=== PATIENT | female | born 1950 | race Caucasian/White ===

== ENCOUNTER → 2016-08-08 | Outpatient (CLI) | payer MEDICARE, OTHER | LOC: RAD 09:37 | DX: R10.9 Unspecified abdominal pain (principal); R14.0 Abdominal distension (gaseous) | CPT/HCPCS: Q9967 ==

== ENCOUNTER 2017-06-06 06:11 | Emergency (ER) | payer MEDICARE ==
[~2017-06-06] VITALS: Ht 167.6 cm; Wt 81.5 kg
[2017-06-06 08:22] LABS: HEMATOCRIT 45.9 % (37.0-47.0); HEMOGLOBIN 15.1 g/dL (12.5-16.0); MEAN CELL VOLUME 87 fl (78-100); MEAN CORPUSCULAR HEMOGLOBIN 29 pg (27-31); MEAN CORPUSCULAR HGB CONC 33 g/dL (33-37); MEAN PLATELET VOLUME 9.7 fl (7.4-10.4); PLATELET COUNT 236 K/mm3 (130-400); RED CELL DISTRIBUTION WIDTH 13.2 % (11.5-14.5); WHITE BLOOD COUNT 6.7 K/mm3 (4.8-10.8)
[2017-06-06 08:26] LABS: ALBUMIN 4.2 g/dL (3.5-5.0); BUN/CREATININE RATIO 15.2 (6.0-26.0); CALCIUM 9.4 mg/dL (8.4-10.2); POTASSIUM 3.3 mmol/L (3.6-5.0); TOTAL BILIRUBIN 0.7 mg/dL (0.2-1.3); TOTAL PROTEIN 7.9 g/dL (6.3-8.2)
[2017-06-06 08:28] LABS: LYMPHOCYTE 51 % (20-51); MONOCYTE 13 % (3-10); NEUTROPHILS 36 % (42-75)
[2017-06-06 08:35] LABS: TROPONIN-I < 0.03 ng/mL (0.00-0.06)
[2017-06-06 09:03] LABS: URINE APPEARANCE CLEAR; URINE BILIRUBIN NEGATIVE (NEGATIVE); URINE BLOOD TRACE (NEGATIVE); URINE COLOR YELLOW; URINE GLUCOSE NEGATIVE (NEGATIVE); URINE KETONE NEGATIVE (NEGATIVE); URINE LEUKOCYTE ESTERASE NEGATIVE (NEGATIVE); URINE NITRATE NEGATIVE (NEGATIVE); URINE PROTEIN(semi-quant) NEGATIVE (NEGATIVE); URINE UROBILINOGEN NORMAL (NORMAL)
[2017-06-06] MEDS ORDERED: TESSALON PERLE100 M1 PO (09:23)
[2017-06-06] MEDS ORDERED: XOPENEX 3 ML3 M3 IH (09:23)
[2017-06-06] MEDS ORDERED: TRUNEB NEBULIZ1 EACH MC (09:23)
[2017-06-06 09:36] VITALS: BP 131/85
== END 2017-06-06 09:35 | disposition home or self-care (01) ==
LOC: ED 06:11
PROVIDERS: Physician Assistant
DX: J20.8 Acute bronchitis due to other specified organisms (principal); Z85.3 Personal history of malignant neoplasm of breast; Z90.11 Acquired absence of right breast and nipple; Z88.1 Allergy status to other antibiotic agents; Z88.0 Allergy status to penicillin; Z88.2 Allergy status to sulfonamides; I51.7 Cardiomegaly; E87.6 Hypokalemia

== ENCOUNTER 2017-06-12 16:31 | Emergency (ER) | payer MEDICARE ==
[~2017-06-12 16:31] MED LIST: TESSALON PERLE100 M1 PO; TRUNEB NEBULIZ1 EACH MC; XOPENEX 3 ML3 M3 IH
[2017-06-12 18:14] LABS: HEMOGLOBIN 15.1 g/dL (12.5-16.0); MEAN CELL VOLUME 85 fl (78-100); MEAN CORPUSCULAR HEMOGLOBIN 28 pg (27-31); MEAN CORPUSCULAR HGB CONC 34 g/dL (33-37); MEAN PLATELET VOLUME 9.3 fl (7.4-10.4); PLATELET COUNT 258 K/mm3 (130-400); RED BLOOD COUNT 5.31 M/mm3 (4.10-5.30); WHITE BLOOD COUNT 4.7 K/mm3 (4.8-10.8)
[2017-06-12 18:38] LABS: LYMPHOCYTE 38 % (20-51); MONOCYTE 13 % (3-10); NEUTROPHILS 49 % (42-75)
[2017-06-12] MEDS ORDERED: CEFDINIR300 MG PO (19:13)
[2017-06-12] MEDS ORDERED: LEVAQUIN 750MG750 M1 PO (19:19)
[2017-06-12 19:32] VITALS: BP 130/73
== END 2017-06-12 19:33 | disposition home or self-care (01) ==
LOC: ED 16:31
PROVIDERS: Nurse Practitioner Family
DX: J20.9 Acute bronchitis, unspecified (principal); R91.8 Other nonspecific abnormal finding of lung field; Z85.3 Personal history of malignant neoplasm of breast; T37.8X6A Underdosing of other specified systemic anti-infectives and antiparasitics, initial encounter; T39.1X6A Underdosing of 4-Aminophenol derivatives, initial encounter; T48.6X6A Underdosing of antiasthmatics, initial encounter; Z91.128 Patient's intentional underdosing of medication regimen for other reason

== ENCOUNTER → 2017-06-19 | Outpatient (CLI) | payer MEDICARE ==
[2017-06-12 19:32] VITALS: BP 130/73
[~2017-06-19] MED LIST changes: +CEFDINIR300 MG PO; +LEVAQUIN 750MG750 M1 PO
== END ==
LOC: RAD 11:25
DX: R91.8 Other nonspecific abnormal finding of lung field (principal); R05 Cough; Z90.11 Acquired absence of right breast and nipple
CPT/HCPCS: Q9967

== ENCOUNTER 2018-04-28 09:45 | Emergency (ER) | payer MEDICARE, OTHER ==
[2018-04-28] MEDS ORDERED: AMLODIPINE BESYL5 MG PO (09:58)
[2018-04-28 10:32] LABS: EOS # 0.1 (0.04-0.40); EOS % 1.3 % (1.0-5.0); HEMATOCRIT 45.4 % (37.0-47.0); LYMPH# 1.5 (1.50-4.00); MEAN CELL VOLUME 87 fl (78-100); MEAN CORPUSCULAR HEMOGLOBIN 29 pg (27-31); MEAN CORPUSCULAR HGB CONC 33 g/dL (33-37); MEAN PLATELET VOLUME 9.9 fl (7.4-10.4); MONO # 0.7 (0.20-0.80); NEU # 4.5 (1.40-6.50); PLATELET COUNT 274 K/mm3 (130-400); RED BLOOD COUNT 5.24 M/mm3 (4.10-5.30); RED CELL DISTRIBUTION WIDTH 13.6 % (11.5-14.5); WHITE BLOOD COUNT 6.9 K/mm3 (4.8-10.8)
[2018-04-28 10:49] LABS: ALBUMIN 4.6 g/dL (3.5-5.0); CALCIUM 9.6 mg/dL (8.4-10.2); POTASSIUM 3.8 mmol/L (3.6-5.0); TOTAL BILIRUBIN 0.3 mg/dL (0.2-1.3); TOTAL PROTEIN 8.2 g/dL (6.3-8.2)
[2018-04-28 11:25] LABS: PH-URINE 5.5 (5.0 - 8.0); URINE APPEARANCE CLEAR; URINE BILIRUBIN NEGATIVE (NEGATIVE); URINE BLOOD NEGATIVE (NEGATIVE); URINE COLOR YELLOW; URINE GLUCOSE NEGATIVE (NEGATIVE); URINE KETONE NEGATIVE (NEGATIVE); URINE LEUKOCYTE ESTERASE NEGATIVE (NEGATIVE); URINE NITRATE NEGATIVE (NEGATIVE); URINE PROTEIN(semi-quant) NEGATIVE (NEGATIVE); URINE UROBILINOGEN NORMAL (NORMAL)
[2018-04-28 11:26] LABS: URINE WBC 0-1 /hpf (0-3)
[2018-04-28 11:46] VITALS: BP 141/83
== END 2018-04-28 11:52 | disposition home or self-care (01) ==
LOC: ED 09:45
PROVIDERS: Family Medicine
DX: R07.89 Other chest pain (principal); R00.2 Palpitations; I10 Essential (primary) hypertension; F41.9 Anxiety disorder, unspecified; R42 Dizziness and giddiness; Z85.3 Personal history of malignant neoplasm of breast; Z90.11 Acquired absence of right breast and nipple; Z79.899 Other long term (current) drug therapy

== ENCOUNTER → 2018-10-08 | Outpatient (CLI) | payer MEDICARE ==
[~2018-10-08] MED LIST changes: +AMLODIPINE BESYL5 MG PO
== END ==
LOC: RAD 08:08
DX: R91.8 Other nonspecific abnormal finding of lung field (principal); R59.0 Localized enlarged lymph nodes; Z90.12 Acquired absence of left breast and nipple; Z85.3 Personal history of malignant neoplasm of breast
CPT/HCPCS: Q9967

== ENCOUNTER → 2018-10-17 | Outpatient (CLI) | payer MEDICARE | LOC: RAD 06:59 → MAMMO 09:15 | DX: C50.011 Malignant neoplasm of nipple and areola, right female breast (principal) | CPT/HCPCS: Q9967 ==

== ENCOUNTER → 2019-11-13 | Outpatient (CLI) | payer MEDICARE | LOC: RAD 12:27 | PROVIDERS: Internal Medicine Hematology & Oncology | DX: C50.919 Malignant neoplasm of unspecified site of unspecified female breast (principal); Z90.11 Acquired absence of right breast and nipple | CPT/HCPCS: Q9967 ==

== ENCOUNTER → 2020-06-23 | Outpatient (CLI) | payer MEDICARE | LOC: RAD 09:00 | DX: M17.0 Bilateral primary osteoarthritis of knee (principal); M18.11 Unilateral primary osteoarthritis of first carpometacarpal joint, right hand; M19.041 Primary osteoarthritis, right hand ==

== ENCOUNTER → 2020-09-01 | Outpatient (CLI) | payer MEDICARE | LOC: CARDREHAB 10:39 | DX: I21.09 ST elevation (STEMI) myocardial infarction involving other coronary artery of anterior wall (principal); I10 Essential (primary) hypertension; Z85.3 Personal history of malignant neoplasm of breast; Z85.118 Personal history of other malignant neoplasm of bronchus and lung ==

== ENCOUNTER → 2020-09-23 | Outpatient (CLI) | payer MEDICARE | LOC: RAD 09:12 | DX: C50.919 Malignant neoplasm of unspecified site of unspecified female breast (principal); J98.4 Other disorders of lung; Z90.49 Acquired absence of other specified parts of digestive tract; Z90.11 Acquired absence of right breast and nipple; Z98.890 Other specified postprocedural states | CPT/HCPCS: Q9967 ==

== ENCOUNTER → 2021-04-26 | Outpatient (CLI) | payer MEDICARE | LOC: RAD 08:44 | DX: J98.11 Atelectasis (principal); R91.1 Solitary pulmonary nodule; N20.0 Calculus of kidney; M89.9 Disorder of bone, unspecified; Z85.3 Personal history of malignant neoplasm of breast | CPT/HCPCS: Q9967 ==

== ENCOUNTER → 2021-10-06 | Outpatient (CLI) | payer MEDICARE | LOC: RAD 08:56 | DX: C50.919 Malignant neoplasm of unspecified site of unspecified female breast (principal); R91.8 Other nonspecific abnormal finding of lung field | CPT/HCPCS: Q9967 ==

== ENCOUNTER → 2021-12-28 | Outpatient (CLI) | payer MEDICARE | LOC: RAD 09:40 | DX: C50.919 Malignant neoplasm of unspecified site of unspecified female breast (principal); R05.9 Cough, unspecified; R06.2 Wheezing | CPT/HCPCS: Q9967 ==

== ENCOUNTER → 2022-04-04 | Outpatient (CLI) | payer MEDICARE | LOC: RAD 08:54 | DX: C50.919 Malignant neoplasm of unspecified site of unspecified female breast (principal); R91.8 Other nonspecific abnormal finding of lung field | CPT/HCPCS: Q9967 ==

== ENCOUNTER → 2022-06-20 | Outpatient (CLI) | payer MEDICARE | LOC: RAD 06-15 09:00 | DX: C50.919 Malignant neoplasm of unspecified site of unspecified female breast (principal); K76.0 Fatty (change of) liver, not elsewhere classified; K44.9 Diaphragmatic hernia without obstruction or gangrene; M89.9 Disorder of bone, unspecified; R91.8 Other nonspecific abnormal finding of lung field; Z90.49 Acquired absence of other specified parts of digestive tract | CPT/HCPCS: Q9967 ==

== ENCOUNTER → 2024-06-19 | Outpatient (CLI) | payer MEDICARE ==
[~2024-06-19] MED LIST changes: +PAXLOVID CO-PA1 EACH PO
== END ==
LOC: RAD 11:08
DX: C50.811 Malignant neoplasm of overlapping sites of right female breast (principal); C79.51 Secondary malignant neoplasm of bone; Z79.811 Long term (current) use of aromatase inhibitors; Z17.0 Estrogen receptor positive status [ER+]